=== PATIENT | male | born 1955 | race Caucasian/White ===

== ENCOUNTER 2021-08-05 19:13 | Emergency (ER) | payer BC ==
[~2021-08-05] VITALS: Ht 185.4 cm; Wt 104.7 kg
--- NOTE | 2021-08-05 21:21 | NUR ---
Patient to room from [facility]. Patient presents to ER c/o flu like symptoms since Tuesday. Patient tested +COVID on Tuesday. Today patient is fatigued. Patient is in NAD. Respirations even and unlabored.
[2021-08-05] MEDS ORDERED: FILTER 0.22 MICRON IV ONE (21:30)
[2021-08-05] MEDS ORDERED: CASIRIVIMAB 600 MG, IMDEVIMAB (REGN10987) 600 MG in SODIUM CHLORIDE 0.9% 250 ML IVPB ONE (21:30)
[2021-08-05 21:38] LABS: BASOPHILS % (AUTO) 1 % (0-1); EOSINOPHILS % (AUTO) 0 % (1-7); LYMPHOCYTES % (AUTO) 22 % (22-44); MEAN CORPUSCULAR HEMOGLOBIN 31.4 pg (27.5-34.5); MEAN CORPUSCULAR HGB CONC 34.4 g/dL (33.2-36.2); MEAN PLATELET VOLUME 8.7 fL (7.4-10.4); MONOCYTES % (AUTO) 11 % (2-9); NEUTROPHILS % (AUTO) 67 % (42-75); PLATELET COUNT 269 x10^3/uL (130-400); RED BLOOD COUNT 4.81 x10^6/uL (4.38-5.82); RED CELL DISTRIBUTION WIDTH 14.4 % (9.4-14.8)
[2021-08-05 21:44] LABS: ALBUMIN 2.9 g/dL (3.4-5.0); ANION GAP 9 mmol/L (5-15); CALCIUM 8.2 mg/dL (8.5-10.1); CHLORIDE 102 mmol/L (98-107)
[2021-08-05 21:48] LABS: ALANINE AMINOTRANSFERASE 38 U/L (12-78); ALKALINE PHOSPHATASE 83 U/L (45-117); BILIRUBIN,TOTAL 0.5 mg/dL (0.2-1.0); CREATININE 1.18 mg/dL (0.7-1.3); TOTAL PROTEIN 7.3 g/dL (6.4-8.2)
--- NOTE | 2021-08-05 23:37 | NUR ---
Regeneron completed. Patient has no complaints. TBDC at 0030.
[2021-08-05 23:38] VITALS: BP 129/78
== END 2021-08-06 00:53 | disposition home or self-care (01) ==
LOC: ED 20:00
DX: U07.1 COVID-19 (principal); J06.9 Acute upper respiratory infection, unspecified; M79.10 Myalgia, unspecified site
CPT/HCPCS: 36415; 80053; 85025; 99283; M0243